=== PATIENT | male | born 1960 | race Caucasian/White ===

== ENCOUNTER → 2020-11-03 11:57 | Outpatient (CLI) | payer OTHER, SELFPAY | PROVIDERS: PCP Family Medicine; Referring Provider Family Medicine; Visit Provider Family Medicine | DX: G60.9 Hereditary and idiopathic neuropathy, unspecified (principal) | CPT/HCPCS: 95886; 95912 ==

== ENCOUNTER → 2020-11-22 09:35 | Outpatient (CLI) | payer OTHER, SELFPAY ==
--- NOTE | 2020-11-22 | DI.US.S_ITS ---
PROCEDURE: US ABD AORTA ANEURYSM SCREEN INDICATIONS: PULSATING AORTA TECHNIQUE: Real time scanning was performed of the aorta and iliac arteries, with image documentation. COMPARISON: None. FINDINGS: Aorta: Proximal aorta obscured by overlying bowel gas. Mid-aorta measures 1.8 cm. Distal aortic diameter is 1.5 cm. Iliac arteries: Right common iliac artery measures 1.1 cm. Left common iliac artery measures 1.1 cm. IMPRESSION: Proximal aorta not well visualized; otherwise no abdominal aortic or proximal common iliac artery aneurysm identified. Dictated by: Salvatore Leblanc [facility] Interpreted: Taurus Bernal MD on 11/22/2020 at 10:09 Transcribed by: ABY on 11/22/2020 at 10:09 Approved by: Jaleel Black M.D. on 11/23/2020 at 13:35
--- NOTE | 2020-11-22 | DI.RAD.S_ITS ---
PROCEDURE: XR KNEE LT 3V INDICATIONS: hereditary and idiopathic neuropathy unspec TECHNIQUE: 3 views of the knee were acquired. COMPARISON: None. FINDINGS: Bones: No fractures or dislocations. No suspicious bony lesions. Soft tissues: No joint effusion. No suspicious soft tissue calcifications. IMPRESSION: No trauma found. No joint effusion or intra-articular loose body. Dictated by: Jaleel Black M.D. on 11/22/2020 at 11:47 Approved by: Jaleel Black M.D. on 11/22/2020 at 11:47
== END ==
PROVIDERS: PCP Family Medicine; Referring Provider Family Medicine; Visit Provider Family Medicine
DX: R09.89 Other specified symptoms and signs involving the circulatory and respiratory systems (principal); G60.9 Hereditary and idiopathic neuropathy, unspecified
CPT/HCPCS: 73562; 76706

== ENCOUNTER → 2021-10-10 11:19 | Outpatient (CLI) | payer OTHER, SELFPAY ==
--- NOTE | 2021-10-10 | DI.RAD.S_ITS ---
PROCEDURE: XR CERVICAL SPINE 2V OR 3V INDICATIONS: Other spondylosis with myelopathy, cervical region TECHNIQUE: 3 view(s) of the cervical spine were acquired. COMPARISON: None. FINDINGS: Bones: Expected appearance of ACDF and interbody spacer at C6-C7. No evidence of hardware failure or loosening. No fractures or dislocations to the T1 level. The lateral masses of C1 appear intact on the odontoid view. No suspicious bony lesions. Severe cervical spondylosis with impressive bilateral cervical facet arthropathy, left greater than right. Soft tissues: No prevertebral soft tissue swelling. IMPRESSION: Severe cervical spondylosis with impressive bilateral cervical facet arthropathy. Dictated by: Hamilton Sosa M.D. on 10/10/2021 at 16:36 Approved by: Hamilton Sosa M.D. on 10/10/2021 at 16:37
== END ==
PROVIDERS: PCP Family Medicine; Referring Provider Neurological Surgery; Visit Provider Neurological Surgery
DX: M47.12 Other spondylosis with myelopathy, cervical region (principal)
CPT/HCPCS: 72040

== ENCOUNTER → 2022-01-26 08:43 | Outpatient (CLI) | payer OTHER, SELFPAY ==
--- NOTE | 2022-01-26 | DI.MRI.S_ITS ---
PROCEDURE: MR HEAD/BRAIN WO/W CON INDICATIONS: Unspecified optic atrophy TECHNIQUE: Noncontrast axial T1 spin echo, axial T2 fast spin echo, sagittal and axial FLAIR, coronal T2 fast spin echo, axial gradient echo, axial diffusion and ADC through the brain. After the administration of contrast, axial and coronal and sagittal T1 spin echo with fat saturation through the brain. COMPARISON: None. FINDINGS: Image quality: Excellent. CSF spaces: Basal cisterns are patent. No extra-axial fluid collections. Ventricles are normal in size and shape. Brain: No midline shift. No intracranial bleeds or masses. No abnormal intracranial enhancement. There is cerebral volume loss for age. There is periventricular white matter chronic small vessel ischemic change. The brainstem appears normal. Diffusion-weighted images demonstrate no acute ischemic insults. No chronic ischemic insults. Normal intravascular flow voids are present. Skull and face: Calvarial marrow is normal in signal. In this patient with this given history, scrutiny is given to the orbits. The optic nerves are symmetrically small in size. No additional orbital abnormality can be seen. The globes demonstrate a normal, symmetric appearance. Sinuses: There is a cystic focus seen within the central inferior frontal sinuses measuring 11 mm, as on series 6, image 10 and on series 11, image 5. Sinuses and mastoids otherwise appear clear. IMPRESSION: The optic nerves are small in size. No abnormal orbital enhancement can be seen. No masses or abnormal enhancement can be seen. Incidental note is made of: 11 mm cystic focus involving the central inferior frontal sinuses. Dictated by: Song Jimenez M.D. on 01/26/2022 at 9:51 Approved by: Song Jimenez M.D. on 01/26/2022 at 9:55
== END ==
PROVIDERS: PCP Family Medicine; Referring Provider Family Medicine; Visit Provider Family Medicine
DX: H47.20 Unspecified optic atrophy (principal)
CPT/HCPCS: 70553